=== PATIENT | male | born 1955 | race Hispanic/Latino ===

== ENCOUNTER 2021-03-23 16:50 | Emergency (ER) | payer MEDICARE ==
[~2021-03-23] VITALS: Ht 167.6 cm; Wt 64.9 kg
[2021-03-23] MEDS ORDERED: BIKT1TAB PO (17:03)
[2021-03-23] MEDS ORDERED: IBUP-1022 PO (17:03)
[2021-03-23] MEDS ORDERED: GABA-283 PO (17:03)
[2021-03-23 18:15] LABS: BASO # 0.1 10^3/uL (0.0-0.2); BASO % 0.9 % (0.0-1.0); EOS # 0.1 10^3/uL (0.0-0.5); EOS % 2.2 % (0.0-3.0); HEMATOCRIT 52.5 % (42.0-52.0); HEMOGLOBIN 18.3 g/dl (13.5-17.5); LYMPH # 1.1 10^3/uL (1.5-5.0); LYMPH % 18.6 % (24.0-44.0); MEAN CORPUSCULAR HEMOGLOBIN 33.6 pg (27.0-33.0); MEAN CORPUSCULAR HGB CONC 34.9 g/dl (32.0-36.5); MEAN CORPUSCULAR VOLUME 96.5 fl (80.0-96.0); MONO # 0.5 10^3/uL (0.0-0.8); NEUTROPHILS # 4.1 10^3/uL (1.5-8.5); NEUTROPHILS % 69.3 % (36.0-66.0); PLATELET COUNT, AUTOMATED 202 10^3/uL (150-450); RED BLOOD COUNT 5.44 10^6/uL (4.30-6.10); WHITE BLOOD COUNT 5.9 10^3/uL (4.0-10.0)
--- NOTE | 2021-03-23 18:16 | REP ---
INDICATION: CHEST PAIN COMPARISON: None. TECHNIQUE: Portable AP view of the chest FINDINGS: The mediastinum and cardiac silhouette are within normal limits for portable technique. The lung laird are clear without acute consolidation, effusion, or pneumothorax. Skeletal structures are intact. IMPRESSION: No acute cardiopulmonary process appreciated. <Electronically signed by Kamari Lyons > 03/23/21 [id number]
[2021-03-23 18:52] LABS: ALBUMIN 3.5 GM/DL (3.2-5.2); ALT/SGPT 41 U/L (12-78); BILIRUBIN,DIRECT 0.2 MG/DL (0.0-0.2); BILIRUBIN,TOTAL 0.9 MG/DL (0.2-1.0); BLOOD UREA NITROGEN 14 MG/DL (7-18); CALCIUM LEVEL 8.8 MG/DL (8.8-10.2); CARBON DIOXIDE LEVEL 25 MEQ/L (21-32); CHLORIDE LEVEL 107 MEQ/L (98-107); CK-MB VALUE MASS < 1.0 NG/ML (<3.6); CPK CREATINE PHOSPHOKINASE 101 U/L (39-308); CREATININE FOR GFR 1.06 MG/DL (0.70-1.30); GLOMERULAR FILTRATION RATE > 60.0 (>49); GLUCOSE, FASTING 94 MG/DL (70-100); LIPASE 210 U/L (73-393); MB/CK RELATIVE INDEX 0.99 (< OR =4); NT-PRO BNP 19 PG/ML (<125); POTASSIUM SERUM 4.3 MEQ/L (3.5-5.1); SODIUM LEVEL 139 MEQ/L (136-145); TOTAL PROTEIN 7.4 GM/DL (6.4-8.2); TROPONIN I < 0.02 NG/ML (< 0.10)
[2021-03-23 20:48] LABS: CK-MB VALUE MASS 1.6 NG/ML (<3.6); CPK CREATINE PHOSPHOKINASE 87 U/L (39-308); MB/CK RELATIVE INDEX 1.84 (< OR =4); TROPONIN I < 0.02 NG/ML (< 0.10)
[2021-03-23] MEDS ORDERED: OMEP40CA4 PO ×2 (21:24→22:29)
[2021-03-23] MEDS ORDERED: SUCR1TA PO ×2 (21:24→22:29)
[2021-03-23 22:15] VITALS: BP 143/88
--- NOTE | 2021-03-24 21:16 | ECGEPIP ---
[facility] - ED Test Date: 2021-03-23 Pat Name: SEEMA CROSS Department: Room: - Gender: Male Forensic Science Technician: : 1955 Requested By: SHERWIN PEOPLES Order Number: [id number] Reading MD: Leonor Frausto Measurements Intervals [place] Rate: 75 P: 57 WV: 134 QRS: 80 QRSD: 94 T: 60 QT: 364 QTc: 406 Interpretive Statements Sinus rhythm with frequent premature ventricular complexes/pacs Electronically Signed on 03-24-2021 21:16:09 EDT by Leonor Frausto
--- NOTE | 2021-03-24 21:17 | ECGEPIP ---
[facility] - ED Test Date: 2021-03-23 Pat Name: SEEMA CROSS Department: Room: - Gender: Male City Sanitarian: [place] : 1955 Requested By: Nicolás Llamas Order Number: [id number] Reading MD: Leonor Frausto Measurements Intervals [place] Rate: 92 P: 41 WI: 150 QRS: 68 QRSD: 94 T: 43 QT: 340 QTc: 420 Interpretive Statements Normal sinus rhythm with sinus arrhythmia increased rate/decreased ectopy 03/23/21 Electronically Signed on 03-24-2021 21:17:25 EDT by Leonor Frausto
== END 2021-03-23 22:26 | disposition home or self-care (01) ==
LOC: M ED 16:50
DX: R07.89 Other chest pain (principal); R06.02 Shortness of breath; B20 Human immunodeficiency virus [HIV] disease; K21.9 Gastro-esophageal reflux disease without esophagitis; E78.5 Hyperlipidemia, unspecified; Z88.2 Allergy status to sulfonamides
CPT/HCPCS: 71045; 80048; 80076; 82550; 82553; 83690; 83880; 84484; 85025; 93005; 93041; 94760; 99285; U0002